=== PATIENT | male | born 1975 | race Caucasian/White ===

== ENCOUNTER 2018-08-18 09:07 | Day surgery (SDC) | payer OTHER ==
--- NOTE | 2018-08-17 15:22 | P.GSHP ---
History of Present Illness H&P Date: 08/18/18 CHIEF COMPLAINT: Change in bowel habits HISTORY OF PRESENT ILLNESS: The patient is a 42-year-old male who presents for change in bowel habits. Lower endoscopy was offered for further evaluation and management. PAST MEDICAL HISTORY: Please see list. PAST SURGICAL HISTORY: Please see list. MEDICATIONS: Please see list. ALLERGIES: Please see list. SOCIAL HISTORY: No illicit drug use FAMILY HISTORY: No reports of Crohn disease or ulcerative colitis. REVIEW OF ORGAN SYSTEMS: CONSTITUTIONAL: No reports of fevers or chills. PHYSICAL EXAM: VITAL SIGNS: Stable GENERAL: Well-developed pleasant in no acute distress. HEENT: No scleral icterus. Extraocular movements grossly intact. Moist buccal mucosa. NECK: Supple without lymphadenopathy. CHEST: Unlabored respirations. Equal bilateral excursions. CARDIOVASCULAR: Regular rate and rhythm. Distal 2+ pulses. ABDOMEN: Soft, nontender, nondistended. MUSCULOSKELETAL: No clubbing, cyanosis, or edema. ASSESSMENT: 1. Change in bowel habits PLAN: 1. Recommend proceeding with a lower endoscopy Medications and Allergies Home Medications Medication Instructions Recorded Confirmed Type Bisoprolol-Hctz 5-6.25 mg [Ziac 1 each PO DAILY 08/15/18 08/15/18 History 5-6.25] Budesonide/Formoterol Fumarate 2 puff INHALATION BID 08/15/18 08/15/18 History [Symbicort 80-4.5 Mcg Inhaler] Allergies Allergy/AdvReac Type Severity Reaction Status Date / Time Penicillins Allergy Unknown Unknown Verified 08/15/18 15:55
[~2018-08-18 09:07] MED LIST: LACTATED RINGERS 1,000 ML IV SCH
[2018-08-18 10:12] VITALS: TEMP 97.8
[2018-08-18] MEDS ORDERED: LACTATED RINGERS 1,000 ML IV ONE (10:12)
[2018-08-18] MEDS ORDERED: LIDOCAINE 1% 20 ML VIAL (10MG/ML) FOR IV START INTRADERMA ONE (10:12)
[2018-08-18] MEDS ORDERED: PROPOFOL 10 MG/ML 20 ML VIAL IV ONE (11:01)
--- NOTE | 2018-08-18 11:22 | P.PCN ---
Date of Procedure: 08/18/18 Description of Procedure: PREOPERATIVE DIAGNOSIS: History of gastrointestinal hemorrhage. History of rectal bleed. POSTOPERATIVE DIAGNOSIS: History of gastrointestinal hemorrhage. History of rectal bleed. Internal hemorrhoids. External hemorrhoids. OPERATION: Colonoscopy to the ileocecal valve and appendiceal orifice SURGEON: Taylor Atkinson MD. ANESTHESIA: MAC. INDICATIONS: The patient is a 42-year-old male who presents for history of rectal bleeding. Benefits and risks were described and informed consent was obtained. DESCRIPTION OF PROCEDURE: The patient had undergone Gatorade, MiraLAX and Dulcolax prep. He had been brought into the operating room and laid in the left lateral decubitus position. After adequate intravenous sedation, the rectum was examined with 2% lidocaine jelly. External hemorrhoids without active inflammation were encountered. The rectal tone was within normal limits. No lesions were palpated in the rectal vault. An Olympus colonoscope was advanced until the ileocecal valve and appendiceal orifice were clearly viewed. No colitis was found. No arteriovenous malformation was encountered. No polyps were encountered. Retroflexion of the scope demonstrated grade 2 internal hemorrhoids without active bleeding. The colon was desufflated. The patient had tolerated the procedure well. FINDINGS: Internal hemorrhoids, grade 2, likely cause of rectal bleed with mild inflammation Mild external prolapsed hemorrhoids. No diverticulosis. No focal colitis. No colon polyps No arteriovenous malformation. RECOMMENDATIONS: Recommend upper endoscopy for any further bleeds. If both scopes are unremarkable may also need a capsule endoscopy in the future. Recommend fiber intake over 25 g daily Plan - Discharge Summary New Discharge Prescriptions: No Action Bisoprolol-Hctz 5-6.25 mg [Ziac 5-6.25] 1 each PO DAILY Budesonide/Formoterol Fumarate [Symbicort 80-4.5 Mcg Inhaler] 2 puff INHALATION BID Discharge Medication List Bisoprolol-Hctz 5-6.25 mg [Ziac 5-6.25] 1 each PO DAILY 08/15/18 [History] Budesonide/Formoterol Fumarate [Symbicort 80-4.5 Mcg Inhaler] 2 puff INHALATION BID 08/15/18 [History]
[2018-08-18 11:46] VITALS: BP 120/78; PULSE 65; RESP 20
== END 2018-08-18 12:07 | disposition home or self-care (01) ==
LOC: ORWHC2ENDO 09:07
PROVIDERS: ATTEND Surgery Plastic and Reconstructive Surgery
DX: K64.1 Second degree hemorrhoids (principal); K64.8 Other hemorrhoids; J44.9 Chronic obstructive pulmonary disease, unspecified; Z79.51 Long term (current) use of inhaled steroids; Z79.899 Other long term (current) drug therapy; Z88.0 Allergy status to penicillin
CPT/HCPCS: 45378; J2704

== ENCOUNTER → 2018-12-12 | Outpatient (CLI) | payer OTHER ==
--- NOTE | 2018-12-14 19:47 | XR ---
EXAMINATION TYPE: XR chest 2V DATE OF EXAM: 12/12/2018 COMPARISON: None HISTORY: 43-year-old male productive cough TECHNIQUE: Frontal and lateral views FINDINGS: The cardiomediastinal silhouette, aorta, and pulmonary vasculature are within normal limits. Mild hyp erinflation may relate to depth of inspiration. Lungs and pleural spaces are clear. IMPRESSION: Mild hyperinflation may relate to depth of inspiration or underlying emphysema. Otherwise, no acute c ardiopulmonary process.
== END ==
LOC: RADXRMAIN 16:47
PROVIDERS: ATTEND Physician Assistant
DX: R91.8 Other nonspecific abnormal finding of lung field (principal)
CPT/HCPCS: 71046

== ENCOUNTER → 2019-01-23 | Outpatient (CLI) | payer OTHER ==
--- NOTE | 2019-01-24 11:37 | XR ---
EXAMINATION TYPE: XR knee complete RT DATE OF EXAM: 01/23/2019 CLINICAL HISTORY: pain TECHNIQUE: Three views of the right knee are obtained. COMPARISON: None. FINDINGS: There is no acute fracture/dislocation. The tri-compartment joint spaces appear within no rmal limits. Superior patellar spurring noted. The overlying soft tissue appears unremarkable. IMPRESSION: There is no acute fracture or dislocation.ICD 10 NO FRACTURE, INITIAL EVALUATION
== END | disposition home or self-care (01) ==
LOC: RADXRMAIN 16:47
PROVIDERS: ATTEND Family Medicine
DX: M25.561 Pain in right knee (principal)

== ENCOUNTER 2019-12-13 23:19 | Emergency (ER) | payer OTHER ==
[2019-12-13 23:29] VITALS: TEMP 97.7
[2019-12-13] MEDS ORDERED: SODIUM CHLORIDE 0.9% 500 ML 500 ML IV STA (23:46)
[2019-12-13] MEDS ORDERED: cloNIDine HCL 0.2 MG TAB PO STA (23:50)
--- NOTE | 2019-12-13 23:50 | ED ---
Arrhythmia/Palpitations HPI - General Chief Complaint: Arrhythmia/Palpitations Stated Complaint: Heart palpatations Time Seen by Provider: 12/13/19 23:32 Source: patient Mode of arrival: ambulatory Limitations: no limitations - History of Present Illness Initial Comments: This patient is 44-year-old man who presents with complaints of feeling irregular heartbeats, chest tightness, and anxiety going on over the past 3 days. The patient states that he has been having some anxiety since he stopped smoking marijuana concentrate. he states that he has been using edible's but not at the same level and he has been feeling anxiety related to that. He also has been having a sensation like his chest feels tight and occasionally like his heart is pounding. MD Complaint: palpitations Onset/Timin -: days(s) Context: occurred during rest Associated Symptoms: denies other symptoms - Related Data Home Medications Medication Instructions Recorded Confirmed Bisoprolol-Hctz 5-6.25 mg [Ziac 1 each PO DAILY 08/15/18 08/15/18 5-6.25] Budesonide/Formoterol Fumarate 2 puff INHALATION BID 08/15/18 08/15/18 [Symbicort 80-4.5 Mcg Inhaler] Allergies Allergy/AdvReac Type Severity Reaction Status Date / Time Penicillins Allergy Unknown Unknown Verified 12/13/19 23:29 Review of Systems ROS Statement: Those systems with pertinent positive or pertinent negative responses have been documented in the HPI. ROS Other: All systems not noted in ROS Statement are negative. Constitutional: Denies: fever, chills Respiratory: Denies: cough, dyspnea, wheezes, hemoptysis Cardiovascular: Reports: chest pain, palpitations. Denies: dyspnea on exertion, orthopnea, edema, syncope Gastrointestinal: Denies: abdominal pain, nausea, vomiting Genitourinary: Denies: dysuria, hematuria Musculoskeletal: Denies: back pain Skin: Denies: rash Neurological: Denies: headache, weakness, numbness Psychiatric: Reports: anxiety Past Medical History Past Medical History: Asthma, COPD, Hypertension History of Any Multi-Drug Resistant Organisms: None Reported Past Surgical History: No Surgical Hx Reported Past Psychological History: No Psychological Hx Reported Smoking Status: Former smoker Past Alcohol Use History: None Reported Past Drug Use History: None Reported General Exam Limitations: no limitations General appearance: alert, in no apparent distress, anxious Head exam: Present: atraumatic, normocephalic Eye exam: Present: normal appearance. Absent: scleral icterus, conjunctival injection ENT exam: Present: normal oropharynx Neck exam: Present: normal inspection Respiratory exam: Present: normal lung sounds bilaterally. Absent: respiratory distress, wheezes, rales, rhonchi, stridor Cardiovascular Exam: Present: regular rate, normal rhythm, normal heart sounds. Absent: systolic murmur, diastolic murmur, rubs, gallop GI/Abdominal exam: Present: soft. Absent: distended, tenderness, guarding, rebound, rigid, mass Extremities exam: Present: normal inspection, normal capillary refill. Absent: pedal edema, calf tenderness Back exam: Present: normal inspection. Absent: CVA tenderness (R), CVA tenderness (L) Neurological exam: Present: alert Skin exam: Present: warm, dry, intact, normal color. Absent: rash Course Vital Signs 12/13/19 12/13/19 12/14/19 23:23 23:40 00:00 Temperature 97.7 F Pulse Rate 79 68 Respiratory 20 20 18 Rate Blood Pressure 156/101 140/98 O2 Sat by Pulse 97 97 Oximetry 12/14/19 12/14/19 12/14/19 00:14 00:30 01:00 Temperature Pulse Rate 69 69 Respiratory 16 Rate Blood Pressure 134/93 134/93 132/89 O2 Sat by Pulse 94 L 96 Oximetry EKG Findings - EKG Results: EKG: interpreted by ISMAEL PHILIPL, sinus rhythm (Rate 69 bpm), normal axis, normal QRS, normal ST/T - SD, Pacemaker, Normal: Normal tracing: normal tracing Medical Decision Making - Lab Data Result diagrams: 12/13/19 23:50 12/13/19 23:50 Lab Results 12/13/19 12/13/19 12/13/19 Range/Units 23:50 23:50 23:50 WBC 13.5 H (3.8-10.6) k/uL RBC 5.08 (4.30-5.90) m/uL Hgb 16.4 (13.0-17.5) gm/dL Hct 47.8 (39.0-53.0) % MCV 94.1 (80.0-100.0) fL MCH 32.2 (25.0-35.0) pg MCHC 34.2 (31.0-37.0) g/dL RDW 12.1 (11.5-15.5) % Plt Count 353 (150-450) k/uL Neutrophils % 78 % Lymphocytes % 14 % Monocytes % 5 % Eosinophils % 3 % Basophils % 0 % Neutrophils # 10.5 H (1.3-7.7) k/uL Lymphocytes # 1.9 (1.0-4.8) k/uL Monocytes # 0.6 (0-1.0) k/uL Eosinophils # 0.4 (0-0.7) k/uL Basophils # 0.0 (0-0.2) k/uL PT 10.5 (9.0-12.0) sec INR 1.0 (<1.2) APTT 27.1 (22.0-30.0) sec Sodium 136 L (137-145) mmol/L Potassium 3.9 (3.5-5.1) mmol/L Chloride 101 (98-107) mmol/L Carbon Dioxide 25 (22-30) mmol/L Anion Gap 10 mmol/L BUN 15 (9-20) mg/dL Creatinine 0.89 (0.66-1.25) mg/dL Est GFR (CKD-EPI)AfAm >90 (>60 ml/min/1.73 sqM) Est GFR (CKD-EPI)NonAf >90 (>60 ml/min/1.73 sqM) Glucose 176 H (74-99) mg/dL Calcium 9.8 (8.4-10.2) mg/dL Magnesium 2.0 (1.6-2.3) mg/dL Total Bilirubin 1.5 H (0.2-1.3) mg/dL AST 25 (17-59) U/L ALT 20 (4-49) U/L Alkaline Phosphatase 74 (38-126) U/L Troponin I (0.000-0.034) ng/mL Total Protein 7.5 (6.3-8.2) g/dL Albumin 4.5 (3.5-5.0) g/dL TSH 1.940 (0.465-4.680) mIU/L Urine Opiates Screen (NotDetected) Ur Oxycodone Screen (NotDetected) Urine Methadone Screen (NotDetected) Ur Propoxyphene Screen (NotDetected) Ur Barbiturates Screen (NotDetected) U Tricyclic Antidepress (NotDetected) Ur Phencyclidine Scrn (NotDetected) Ur Amphetamines Screen (NotDetected) U Methamphetamines Scrn (NotDetected) U Benzodiazepines Scrn (NotDetected) Urine Cocaine Screen (NotDetected) U Marijuana (THC) Screen (NotDetected) 12/13/19 12/13/19 Range/Units 23:50 23:56 WBC (3.8-10.6) k/uL RBC (4.30-5.90) m/uL Hgb (13.0-17.5) gm/dL Hct (39.0-53.0) % MCV (80.0-100.0) fL MCH (25.0-35.0) pg MCHC (31.0-37.0) g/dL RDW (11.5-15.5) % Plt Count (150-450) k/uL Neutrophils % % Lymphocytes % % Monocytes % % Eosinophils % % Basophils % % Neutrophils # (1.3-7.7) k/uL Lymphocytes # (1.0-4.8) k/uL Monocytes # (0-1.0) k/uL Eosinophils # (0-0.7) k/uL Basophils # (0-0.2) k/uL PT (9.0-12.0) sec INR (<1.2) APTT (22.0-30.0) sec Sodium (137-145) mmol/L Potassium (3.5-5.1) mmol/L Chloride (98-107) mmol/L Carbon Dioxide (22-30) mmol/L Anion Gap mmol/L BUN (9-20) mg/dL Creatinine (0.66-1.25) mg/dL Est GFR (CKD-EPI)AfAm (>60 ml/min/1.73 sqM) Est GFR (CKD-EPI)NonAf (>60 ml/min/1.73 sqM) Glucose (74-99) mg/dL Calcium (8.4-10.2) mg/dL Magnesium (1.6-2.3) mg/dL Total Bilirubin (0.2-1.3) mg/dL AST (17-59) U/L ALT (4-49) U/L Alkaline Phosphatase (38-126) U/L Troponin I <0.012 (0.000-0.034) ng/mL Total Protein (6.3-8.2) g/dL Albumin (3.5-5.0) g/dL TSH (0.465-4.680) mIU/L Urine Opiates Screen Not Detected (NotDetected) Ur Oxycodone Screen Not Detected (NotDetected) Urine Methadone Screen Not Detected (NotDetected) Ur Propoxyphene Screen Not Detected (NotDetected) Ur Barbiturates Screen Not Detected (NotDetected) U Tricyclic Antidepress Not Detected (NotDetected) Ur Phencyclidine Scrn Not Detected (NotDetected) Ur Amphetamines Screen Not Detected (NotDetected) U Methamphetamines Scrn Not Detected (NotDetected) U Benzodiazepines Scrn Not Detected (NotDetected) Urine Cocaine Screen Not Detected (NotDetected) U Marijuana (THC) Screen Detected H (NotDetected) Disposition Clinical Impression: Palpitations Disposition: HOME SELF-CARE Condition: Good Instructions (If sedation given, give patient instructions): Heart Palpitations (ED) Is patient prescribed a controlled substance at d/c from ED?: No Referrals: Jeffrey Bryant DO [Primary Care Provider] - 1-2 days
[2019-12-13 23:59] LABS: Basophils % (A) 0 %; Eosinophils # (A) 0.4 k/uL (0-0.7); Eosinophils % (A) 3 %; HCT 47.8 % (39.0-53.0); HGB 16.4 gm/dL (13.0-17.5); Lymphocytes # (A) 1.9 k/uL (1.0-4.8); Lymphocytes % (A) 14 %; MCH 32.2 pg (25.0-35.0); MCHC 34.2 g/dL (31.0-37.0); MCV 94.1 fL (80.0-100.0); Monocytes # (A) 0.6 k/uL (0-1.0); Monocytes % (A) 5 %; Neutrophils # (A) 10.5 k/uL (1.3-7.7); Neutrophils % (A) 78 %; Platelet Count 353 k/uL (150-450); RBC 5.08 m/uL (4.30-5.90); RDW 12.1 % (11.5-15.5); WBC 13.5 k/uL (3.8-10.6)
[2019-12-14 00:08] LABS: ALT 20 U/L (4-49); AST 25 U/L (17-59); African American GFR (CKD) >90 (>60 ml/min/1.73 sqM); Albumin 4.5 g/dL (3.5-5.0); Alkaline Phosphatase 74 U/L (38-126); Anion Gap 10 mmol/L; Blood Urea Nitrogen 15 mg/dL (9-20); Calcium 9.8 mg/dL (8.4-10.2); Carbon Dioxide 25 mmol/L (22-30); Chloride 101 mmol/L (98-107); Glucose 176 mg/dL (74-99); Non-African American GFR(CKD) >90 (>60 ml/min/1.73 sqM); Partial Thromboplastin Time 27.1 sec (22.0-30.0); Potassium 3.9 mmol/L (3.5-5.1); Prothrombin Time 10.5 sec (9.0-12.0); Sodium 136 mmol/L (137-145); Total Bilirubin 1.5 mg/dL (0.2-1.3); Total Protein 7.5 g/dL (6.3-8.2)
[2019-12-14 00:26] LABS: Amphetamine Screen,Urine Not Detected (NotDetected); Barbiturate Screen,Urine Not Detected (NotDetected); Benzodiazepines Screen,Urine Not Detected (NotDetected); Cocaine Screen,Urine Not Detected (NotDetected); Methadone Screen, Urine Not Detected (NotDetected); Opiate Screen,Urine Not Detected (NotDetected); Oxycodone Screen, Urine Not Detected (NotDetected); Phencyclidine Screen,Urine Not Detected (NotDetected); Tricyclic Antidepressant,Urine Not Detected (NotDetected); Urn Cannabinoid Scrn Detected (NotDetected)
--- NOTE | 2019-12-14 00:36 | XR ---
EXAMINATION TYPE: XR chest 2V DATE OF EXAM: 12/14/2019 COMPARISON: 12/12/2018 HISTORY: Cough. Dysrhythmia. TECHNIQUE: 2 views FINDINGS: Heart and mediastinum are normal. Lungs are clear. Diaphragm is normal. Bony thorax appears normal. Pulmonary vascularity is normal. There are chest leads. IMPRESSION: Normal chest. No change.
[2019-12-14 01:43] VITALS: BP 132/87; PULSE 67; RESP 15
== END 2019-12-14 01:44 | disposition home or self-care (01) ==
LOC: EC 23:19
DX: R00.2 Palpitations (principal); J44.9 Chronic obstructive pulmonary disease, unspecified; I10 Essential (primary) hypertension; F12.980 Cannabis use, unspecified with anxiety disorder; Z79.51 Long term (current) use of inhaled steroids; Z79.899 Other long term (current) drug therapy; Z87.891 Personal history of nicotine dependence; Z88.0 Allergy status to penicillin
CPT/HCPCS: 36415; 71046; 80053; 80306; 83735; 84443; 84484; 85025; 85610; 85730; 93005; 99285

== ENCOUNTER 2019-12-22 20:18 | Observation (INO) | payer OTHER ==
--- NOTE | 2019-12-22 21:36 | XR ---
EXAMINATION TYPE: XR chest 2V DATE OF EXAM: 12/22/2019 COMPARISON: Chest x-ray December 14, 2019 HISTORY: Chest pain and syncope. TECHNIQUE: Frontal and lateral views of the chest are obtained. FINDINGS: There is mild chronic chronic parenchymal change without suspicious focal air space opacit y, pleural effusion, or pneumothorax seen. The cardiac silhouette size remains within normal limits. The osseous structures are intact. Overlying EKG leads redemonstrated. IMPRESSION: No acute cardiopulmonary process. No significant change from prior.
[2019-12-22 21:38] LABS: Basophils # (A) 0.1 k/uL (0-0.2); Basophils % (A) 0 %; Eosinophils # (A) 0.3 k/uL (0-0.7); Eosinophils % (A) 3 %; HCT 47.6 % (39.0-53.0); HGB 15.5 gm/dL (13.0-17.5); Lymphocytes # (A) 2.3 k/uL (1.0-4.8); Lymphocytes % (A) 20 %; MCH 30.5 pg (25.0-35.0); MCHC 32.7 g/dL (31.0-37.0); MCV 93.4 fL (80.0-100.0); Mean Platelet Volume 8.5; Monocytes # (A) 0.7 k/uL (0-1.0); Monocytes % (A) 6 %; Neutrophils % (A) 69 %; Platelet Count 371 k/uL (150-450); RBC 5.09 m/uL (4.30-5.90); RDW 11.9 % (11.5-15.5); WBC 11.5 k/uL (3.8-10.6)
[2019-12-22 21:43] LABS: Partial Thromboplastin Time 26.2 sec (22.0-30.0); Prothrombin Time 10.1 sec (9.0-12.0)
[2019-12-22 21:44] LABS: ALT 21 U/L (4-49); AST 30 U/L (17-59); African American GFR (CKD) >90 (>60 ml/min/1.73 sqM); Albumin 4.5 g/dL (3.5-5.0); Alkaline Phosphatase 77 U/L (38-126); Anion Gap 13 mmol/L; Blood Urea Nitrogen 13 mg/dL (9-20); Calcium 9.7 mg/dL (8.4-10.2); Carbon Dioxide 21 mmol/L (22-30); Chloride 103 mmol/L (98-107); Glucose 105 mg/dL (74-99); Magnesium 2.1 mg/dL (1.6-2.3); Non-African American GFR(CKD) 89 (>60 ml/min/1.73 sqM); Sodium 137 mmol/L (137-145); Total Bilirubin 1.4 mg/dL (0.2-1.3); Total Protein 7.7 g/dL (6.3-8.2)
[2019-12-22] MEDS ORDERED: NALOXONE 0.4 MG/ML 1 ML VIAL IV PRN (22:48)
--- NOTE | 2019-12-22 22:48 | ED ---
Chest Pain HPI - General Chief Complaint: Chest Pain Stated Complaint: Chest Pressure Time Seen by Provider: 12/22/19 20:30 Source: patient Mode of arrival: ambulatory Limitations: no limitations - History of Present Illness Initial Comments: The patient is a 44-year-old male with past medical history of hypertension and hyperlipidemia who presents to the emergency department with reported chest pain. Patient states this pain started 2-1/2 hours prior to arrival. Describes it as a pressure on his chest. Also reports the palpitations and the feeling that he is going to pass out. Patient denies a history of coronary disease. Has never had a stress test or echo before. Patient admitted to associated diaphoresis. Denies cough or hemoptysis. No lower extremity edema. Pain improved at this time. Patient for T-wave seen in the emergency department one week ago for similar complaints. He followed up with his primary care physician office to changed his blood pressure medications however did not add any other medications. She was scheduling him for a stress test however he has yet to receive a call in regards to this. There are no alleviating, precipitating or modifying factors - Related Data Home Medications Medication Instructions Recorded Confirmed Albuterol Inhaler [Ventolin Hfa 2 puff INHALATION RT-Q6H PRN 12/22/19 12/22/19 Inhaler] Atorvastatin [Lipitor] 20 mg PO DAILY@0700 12/22/19 12/22/19 Budesonide/Formoterol Fumarate 1 puff INHALATION RT-BID 12/22/19 12/22/19 [Symbicort 160-4.5 Mcg Inhaler] Carvedilol [Coreg] 6.25 mg PO BID@0700,1800 12/22/19 12/22/19 Omeprazole 20 mg PO DAILY@0700 12/22/19 12/22/19 amLODIPine [Norvasc] 5 mg PO DAILY@0700 12/22/19 12/22/19 busPIRone HCL [Buspar] 7.5 mg PO DAILY@0700 12/22/19 12/22/19 busPIRone HCL [Buspar] 7.5 mg PO HS PRN 12/22/19 12/22/19 Previous Rx's Medication Instructions Recorded Melatonin 3 mg PO HS #30 tablet 12/23/19 Allergies Allergy/AdvReac Type Severity Reaction Status Date / Time Penicillins AdvReac Unknown WEAKNESS Verified 05/19/20 21:41 Review of Systems ROS Statement: Those systems with pertinent positive or pertinent negative responses have been documented in the HPI. ROS Other: All systems not noted in ROS Statement are negative. EKG Findings - EKG Comments: EKG Findings:: EKG demonstrates normal sinus rhythm with a ventricular rate of 77. VA interval 178. QRS 80. QTC of 407. No acute ST segment elevations or depressions concerning for ischemic changes Past Medical History Past Medical History: Asthma, COPD, Hypertension History of Any Multi-Drug Resistant Organisms: None Reported Past Surgical History: No Surgical Hx Reported Past Psychological History: No Psychological Hx Reported Smoking Status: Former smoker Past Alcohol Use History: None Reported Past Drug Use History: None Reported General Exam Limitations: no limitations General appearance: alert, in no apparent distress Head exam: Present: atraumatic, normocephalic, normal inspection Eye exam: Present: normal appearance, PERRL, EOMI. Absent: scleral icterus, conjunctival injection, periorbital swelling ENT exam: Present: normal exam, mucous membranes moist Neck exam: Present: normal inspection. Absent: tenderness, meningismus, lymphadenopathy Respiratory exam: Present: normal lung sounds bilaterally. Absent: respiratory distress, wheezes, rales, rhonchi, stridor Cardiovascular Exam: Present: regular rate, normal rhythm, normal heart sounds. Absent: systolic murmur, diastolic murmur, rubs, gallop, clicks GI/Abdominal exam: Present: soft, normal bowel sounds. Absent: distended, tenderness, guarding, rebound, rigid Extremities exam: Present: normal inspection, full ROM, normal capillary refill. Absent: tenderness, pedal edema, joint swelling, calf tenderness Back exam: Present: normal inspection Neurological exam: Present: alert, oriented X3, CN II-XII intact Psychiatric exam: Present: normal affect, normal mood Skin exam: Present: warm, dry, intact, normal color. Absent: rash Course Vital Signs 12/22/19 12/22/19 12/22/19 20:28 20:30 22:30 Temperature 98.9 F Pulse Rate 82 70 69 Pulse Rate [ Left Supine] Pulse Rate [ Right] Respiratory 18 17 19 Rate Blood Pressure 150/91 150/91 119/72 Blood Pressure [Right Arm Supine] O2 Sat by Pulse 97 98 Oximetry 12/23/19 12/23/19 12/23/19 02:30 06:30 08:00 Temperature 97.8 F Pulse Rate 67 61 Pulse Rate [ 78 Left Supine] Pulse Rate [ Right] Respiratory 16 16 16 Rate Blood Pressure 126/79 123/77 Blood Pressure 113/77 [Right Arm Supine] O2 Sat by Pulse 98 96 98 Oximetry 12/23/19 12/23/19 12:00 12:50 Temperature 98.6 F Pulse Rate Pulse Rate [ 78 Left Supine] Pulse Rate [ 83 83 Right] Respiratory 16 16 Rate Blood Pressure Blood Pressure 140/95 [Right Arm Supine] O2 Sat by Pulse 96 Oximetry Chest Pain MDM - MDM Upon arrival the patient is placed into room 10. A thorough history and physical exam was performed. Laboratory studies were conducted. I did review the patient's record. Laboratory studies are unremarkable. First troponin is negative. Chest x-ray demonstrates no acute intrathoracic process. I did recommend hospital admission as this is the patient's second time to the emergency room with similar complaints. Patient did agree to this. I spoke with Dr. Monet who accepted admission. The patient is awaiting a bed on the floor Disposition Clinical Impression: Chest pain Disposition: ADMITTED IP TO THIS HOSP Condition: Stable Is patient prescribed a controlled substance at d/c from ED?: No Decision to Admit Reason: Admit from EC Decision Date: 12/22/19 Decision Time: 22:47
[2019-12-22] MEDS ORDERED: busPIRone HCl 5 MG TAB PO PRN (22:49)
[2019-12-22] MEDS ORDERED: ALBUTEROL NEBULIZED 2.5 MG/3 ML INHALATION PRN (22:49)
[2019-12-22] MEDS ORDERED: ASPIRIN 325 MG TAB PO STA (22:56)
[2019-12-23 03:12] VITALS: RESP 16
[2019-12-23] MEDS ORDERED: amLODIPine 5 MG TAB PO SCH (07:00)
[2019-12-23] MEDS ORDERED: ATORVASTATIN 20 MG TAB PO SCH ×2 (07:00→21:00)
[2019-12-23] MEDS ORDERED: PANTOPRAZOLE 40 MG TABLET PO SCH (07:00)
[2019-12-23] MEDS ORDERED: CARVEDILOL 6.25 MG TAB PO SCH (07:00)
[2019-12-23] MEDS ORDERED: busPIRone HCl 5 MG TAB PO SCH (07:00)
[2019-12-23] MEDS ORDERED: SYMBICORT 160-4.5 MCG INHALER INHALATION SCH (08:00)
[2019-12-23] MEDS ORDERED: NITROGLYCERIN SL TABS 0.4 MG TAB SUBLINGUAL PRN (08:47)
[2019-12-23 09:28] LABS: Basophils % (A) 0 %; Eosinophils # (A) 0.3 k/uL (0-0.7); Eosinophils % (A) 3 %; HCT 48.2 % (39.0-53.0); HGB 15.8 gm/dL (13.0-17.5); Lymphocytes # (A) 1.9 k/uL (1.0-4.8); Lymphocytes % (A) 18 %; MCH 31.1 pg (25.0-35.0); MCHC 32.9 g/dL (31.0-37.0); MCV 94.5 fL (80.0-100.0); Mean Platelet Volume 8.4; Monocytes # (A) 0.6 k/uL (0-1.0); Monocytes % (A) 6 %; Neutrophils # (A) 7.6 k/uL (1.3-7.7); Neutrophils % (A) 72 %; Platelet Count 329 k/uL (150-450); RBC 5.09 m/uL (4.30-5.90); RDW 11.9 % (11.5-15.5); WBC 10.6 k/uL (3.8-10.6)
[2019-12-23 09:45] LABS: African American GFR (CKD) >90 (>60 ml/min/1.73 sqM); Anion Gap 11 mmol/L; Blood Urea Nitrogen 12 mg/dL (9-20); Calcium 9.5 mg/dL (8.4-10.2); Carbon Dioxide 22 mmol/L (22-30); Chloride 107 mmol/L (98-107); Glucose 90 mg/dL (74-99); Non-African American GFR(CKD) >90 (>60 ml/min/1.73 sqM); Potassium 3.8 mmol/L (3.5-5.1); Sodium 140 mmol/L (137-145)
--- NOTE | 2019-12-23 11:31 | CONS ---
JAYLON Haji is a 44-year-old gentleman with history of hypertension, dyslipidemia, COPD, who presented to hospital complaining of chest pain. For the last few days, he states he is having intermittent episodes of chest pain and mild palpitations. At the time of my evaluation, he is pain free and hemodynamically stable. EKG does not reveal ischemic changes. Cardiac enzymes have been negative. I advised the patient to undergo a stress test today. If the stress test is abnormal, he will undergo cardiac catheterization. If not, he will be treated with medical therapy. PAST MEDICAL HISTORY: Significant for hypertension, dyslipidemia. CURRENT MEDICATIONS: Include BuSpar, Norvasc 5 daily, omeprazole, Coreg 6.25 b.i.d., Symbicort, Lipitor, and Ventolin. ALLERGIES: The patient is allergic to PENICILLIN. FAMILY HISTORY: Negative for premature coronary artery disease. SOCIAL HISTORY: Negative for current smoking, EtOH abuse, or drug abuse. REVIEW OF SYSTEMS: HEENT: Unremarkable. CARDIAC: As described above. RESPIRATORY: As described above. GI: Negative. GENITOURINARY: Negative. ALLERGY/IMMUNOLOGY: Negative. SKIN: Negative. MUSCULOSKELETAL: Negative. ENDOCRINE: Negative. DERM: Negative. CONSTITUTIONAL: Negative. ONCOLOGICAL: Negative. Rest of the system review is not relevant. PHYSICAL EXAM: Comfortable at rest. Vital signs are stable. There is no jugular venous distention. Carotid upstroke is normal. There is no bruit. Chest exam reveals good air entry bilaterally. Heart exam reveals first and second heart sounds. No gallop. No murmur. Abdomen is soft, nontender. Exam of extremities did not reveal any edema. Peripheral pulses are felt. LABS: Show a hemoglobin of 15.8, platelet count is 329, potassium is 3.8 creatinine is 0.85. Troponins are negative. ASSESSMENT: 1. Precordial chest pain. 2. Hypertension. 3. Dyslipidemia. PLAN: The patient will undergo a stress echo today. If this is negative, he will be discharged home. If this is abnormal, I will perform cardiac catheterization. MMODL / IJN: [id number] /
--- NOTE | 2019-12-23 12:00 | ECHOF ---
Referral Reason: MEASUREMENTS -------- HEIGHT: 180.3 cm WEIGHT: 90.7 kg BP: RVIDd: 2.6 cm (< 3.3) IVSd: 1.2 cm (0.6 - 1.1) LVIDd: 3.4 cm (3.9 - 5.3) LVPWd: 1.5 cm (0.6 - 1.1) IVSs: 1.6 cm LVIDs: 2.5 cm LVPWs: 2.0 cm Ao Diam: 3.0 cm (2.0 - 3.7) AV Cusp: 1.8 cm (1.5 - 2.6) LA Diam: 3.1 cm (2.7 - 3.8) MV EXCURSION: 18.048 mm (> 18.000) MV EF SLOPE: 118 mm/s (70 - 150) EPSS: 0.4 cm MV E Brad: 0.79 m/s MV DecT: 209 ms MV A Brad: 0.55 m/s MV E/A Ratio: 1.44 RAP: 5.00 mmHg RVSP: 15.73 mmHg FINDINGS -------- Sinus rhythm. This was a technically good study. The left ventricular size is normal. There is mild concentric left ventricular hypertrophy. Overa ll left ventricular systolic function is normal with, an EF between 55 - 60 %. The right ventricle is normal in size. The left atrial size is normal. The right atrial size is normal. Interatrial and interventricular septum intact. The aortic valve is trileaflet and appears structurally normal. The mitral valve is normal. There is trace mitral regurgitation. The tricuspid valve appears structurally normal. Trace tricuspid regurgitation present. Right humaira tricular systolic pressure is normal at < 35 mmHg. There is no pulmonic regurgitation present. The aortic root size is normal. Normal inferior vena cava with normal inspiratory collapse consistent with estimated right atrial pre ssure of 5 mmHg. There is no pericardial effusion. CONCLUSIONS -------- 1. Sinus rhythm. 2. This was a technically good study. 3. The left ventricular size is normal. 4. There is mild concentric left ventricular hypertrophy. 5. Overall left ventricular systolic function is normal with, an EF between 55 - 60 %. 6. The right ventricle is normal in size. 7. The left atrial size is normal. 8. The right atrial size is normal. 9. Interatrial and interventricular septum intact. 10. The aortic valve is trileaflet and appears structurally normal. 11. The mitral valve is normal. 12. There is trace mitral regurgitation. 13. The tricuspid valve appears structurally normal. 14. Trace tricuspid regurgitation present. 15. Right ventricular systolic pressure is normal at < 35 mmHg. 16. There is no pulmonic regurgitation present. 17. The aortic root size is normal. 18. Normal inferior vena cava with normal inspiratory collapse consistent with estimated right atrial pressure of 5 mmHg. 19. There is no pericardial effusion. AIX ADMINISTRATOR: Silvia Martinez RDCS
--- NOTE | 2019-12-23 16:21 | ECHOS ---
STRESS ECHOCARDIOGRAM LUCIAASON: Gaye INDICATIONS: Chest pain. MEDICATIONS: BASELINE HEART RATE: 79 BASELINE BLOOD PRESSURE: 144/101 MAXIMUM HEART RATE: 153 MAXIMUM BLOOD PRESSURE: 160/100 85% MPHR: 150 100% MPHR: 177 METS: 12.1 MAXIMUM STAGE REACHED: 4 TOTAL EXERCISE TIME: 10:30 CLINICAL INFORMATION: DATE OF SERVICE: 12/23/2019 Baseline EKG revealed normal sinus rhythm without significant ST-T changes. Patient walked on standard Natanael protocol for a total duration of 10 minutes 30 seconds, achieved a maximal heart rate of 159 beats per minute which is well above 85% of predicted maximal. He developed fatigue and shortness of breath but did not have any angina or arrhythmia. Resting heart rate was 79 beats per minute. Peak heart rate was 159 beats per minute. Resting blood pressure was 140/100. Peak blood pressure was 178/91. EKG did not reveal any ST-segment changes to indicate ischemia. This is a negative stress test by EKG criteria. Baseline echo images revealed normal wall motion wall thickening of all segments. At peak exercise there was good augmentation of wall motion AND wall thickening of all segments suggesting that there is no evidence of stress-induced ischemia on this study. IMPRESSION: 1. Excellent exercise capacity with a negative stress test by EKG criteria. 2. Normal stress echocardiogram. MMODL / IJN: [id number] /
--- NOTE | 2019-12-23 16:51 | P.HPIM ---
History of Present Illness H&P Date: 12/23/19 Chief Complaint: Chest squeezing History of presenting complaint: This is a pleasant 40. Patient of Dr. Kyung Bryant. Chronic stable medical conditions include asthma, hypertension, hyperlipidemia and anxiety. Patient definitely refractory of anxious disposition and worries about small things. Patient presented multitudinous symptoms. He was sitting down and surgery for his heart racing. Became anxious. Also felt his lower sternal area squeezing. He said having pains appearance and needles in different parts of the chest. No radiation. He felt dizzy perspiration very anxious. Patient often as not able to sleep. Has a decreased appetite. During the conversation appears rather anxious. Otherwise rather active. Patient did quit chewing marijuana to 3 weeks ago. Lives by himself. Denies use of a other recreational drugs. On any energy supplements. Patient also erratic about his meals and duration he goes without them. Patient is quite concerned about the cold and 19. And other things to. He also has a pet animal (he finds quite a bit of this responsibility with. He is trying to sell the same.. Review of systems: GEN.: Decreased appetite EYES: None HEENT: None NECK: None RESPIRATORY: None CARDIOVASCULAR: As above] GASTROINTESTINAL: None GENITOURINARY: None MUSCULOSKELETAL: None LYMPHATICS: None HEMATOLOGICAL: None PSYCHIATRY: Anxious NEUROLOGICAL: Decreased sleeping Past medical history to include: Asthma, hypertension, anxiety, GERD Social history: Lives alone. Works in a foundry. Smoked for about 10 years stopped about 20 years ago. Denies intake of alcohol. Was doing marijuana to about 3 weeks ago. Family history: Reviewed, noncontributory to presentation Physical examination: VITAL SIGNS: 98.9, 82, 18, 150/91, 97% room air GENERAL: BMI 27.1, propped up in bed, anxious. EYES: Pupils equal. Conjunctiva joseline, some dark circles under the eyes l. HEENT: External appearance of nose and ears normal, oral cavity grossly normal. NECK: JVD not raised; masses not palpable. HEART: First and second heart sounds are normal; no edema. LUNGS: Respiratory rate normal; clear to auscultation. ABDOMEN: Soft, nontender, liver spleen not palpable, no masses palpable. PSYCH: Alert and oriented x3; mood and affect anxiousl. NEUROLOGICAL: Cranial nerves grossly intact; no facial asymmetry, power and sensation grossly intact. LYMPHATICS: No lymph nodes palpable in the axilla and neck INVESTIGATIONS, reviewed in the clinical context: White count 11.5 hemoglobin 15.5 potassium 4 crit 1.03 and repeat white count 10.6 Troponin I 3 negative COVID-19 PCR at-not detected EKG tracing personally reviewed by me-normal sinus rhythm Chest x-ray film personally reviewed by me-lungs clear Assessment: -Anterior chest wall pain is rather atypical noncardiac associated features. Most likely panic attack. Patient is a very anxious predisposition. Rule out a cardiac cause -COPD in an ex-smoker -Essential hypertension -Anxiety, depression not otherwise specified -Chronic insomnia from medical reasons Plan: Serial cardiac enzymes were negative. Cardiology was consulted. They ordered a stress echocardiogram. Patient was counseled length about lifestyle changes. Including mindfulness. Patient is told to stay with him recreational drugs. We'll add melatonin. At night. Past Medical History Past Medical History: Asthma, COPD, Hypertension History of Any Multi-Drug Resistant Organisms: None Reported Past Surgical History: No Surgical Hx Reported Past Psychological History: No Psychological Hx Reported Smoking Status: Former smoker Past Alcohol Use History: None Reported Past Drug Use History: None Reported Medications and Allergies Home Medications Medication Instructions Recorded Confirmed Type Albuterol Inhaler [Ventolin Hfa 2 puff INHALATION RT-Q6H PRN 12/22/19 12/22/19 History Inhaler] Atorvastatin [Lipitor] 20 mg PO DAILY@0700 12/22/19 12/22/19 History Budesonide/Formoterol Fumarate 1 puff INHALATION RT-BID 12/22/19 12/22/19 Histo ry [Symbicort 160-4.5 Mcg Inhaler] Carvedilol [Coreg] 6.25 mg PO BID@0700,1800 12/22/19 12/22/19 History Omeprazole 20 mg PO DAILY@0700 12/22/19 12/22/19 History amLODIPine [Norvasc] 5 mg PO DAILY@0700 12/22/19 12/22/19 History busPIRone HCL [Buspar] 7.5 mg PO DAILY@0700 12/22/19 12/22/19 History busPIRone HCL [Buspar] 7.5 mg PO HS PRN 12/22/19 12/22/19 History Allergies Allergy/AdvReac Type Severity Reaction Status Date / Time Penicillins AdvReac Unknown WEAKNESS Verified 12/22/19 21:41 Physical Exam Vitals: Vital Signs Temp Pulse Resp BP Pulse Ox 12/23/19 06:30 61 16 123/77 96 12/23/19 02:30 67 16 126/79 98 12/22/19 22:30 69 19 119/72 12/22/19 20:30 70 17 150/91 98 12/22/19 20:28 98.9 F 82 18 150/91 97 Intake and Output 12/22/19 12/23/19 12/23/19 22:59 06:59 14:59 Other: Weight 90.718 kg Results CBC & Chem 7: 12/23/19 08:55 12/23/19 08:55 Labs: Abnormal Lab Results - Last 24 Hours (Table) 12/22/19 12/22/19 Range/Units 20:41 20:41 WBC 11.5 H (3.8-10.6) k/uL Neutrophils # 8.0 H (1.3-7.7) k/uL Carbon Dioxide 21 L (22-30) mmol/L Glucose 105 H (74-99) mg/dL Total Bilirubin 1.4 H (0.2-1.3) mg/dL
[2019-12-23 16:53] VITALS: BP 134/87; TEMP 98.3
[2019-12-23 16:58] VITALS: PULSE 78
--- NOTE | 2019-12-23 22:38 | P.DS ---
Providers Date of admission: 12/22/19 22:48 Expected date of discharge: 12/23/19 Attending physician: Ruben Monet Consults: 12/22/19 22:48 Consult Physician Urgent Consulting Provider: [facility] Consult Reason/Comments: acute chest pain possible acs Do you want consulting provider notified?: Yes Primary care physician: Jeffrey Bryant [facility] Course: Chief Complaint: Chest squeezing History of presenting complaint: This is a pleasant 40. Patient of Dr. Kyung Bryant. Chronic stable medical conditions include asthma, hypertension, hyperlipidemia and anxiety. Patient definitely refractory of anxious disposition and worries about small things. Patient presented multitudinous symptoms. He was sitting down and surgery for h is heart racing. Became anxious. Also felt his lower sternal area squeezing. He said having pains appearance and needles in different parts of the chest. No radiation. He felt dizzy perspiration very anxious. Patient often as not able to sleep. Has a decreased appetite. During the conversation appears rather anxious. Otherwise rather active. Patient did quit chewing marijuana to 3 weeks ago. Lives by himself. Denies use of a other recreational drugs. On any energy supplements. Patient also erratic about his meals and duration he goes without them. Patient is quite concerned about the cold and 19. And other things to. He also has a pet animal (he finds quite a bit of this responsibility with. He is trying to sell the same.. Patient's symptoms were felt to be psychosomatic more of a panic attack. Patient does of anxious disposition. Troponins were negative. 2-D echocardiogram was unremarkable. Stress echocardiogram was negative. Cleared by cardiogenic. Care was discussed at length with the patient. He should follow with a psychologist and a psychiatry as an outpatient. Discussed at length. Mindfulness was also discussed. Consultation: Dr. Octavia Alonso from cardiology Physical examination: VITAL SIGNS: 98.3, 77, 16, 134/87, 97% on room air GENERAL: BMI 27.1, propped up in bed, anxious. EYES: Pupils equal. Conjunctiva joseline, some dark circles under the eyes l. HEENT: External appearance of nose and ears normal, oral cavity grossly normal. NECK: JVD not raised; masses not palpable. HEART: First and second heart sounds are normal; no edema. LUNGS: Respiratory rate normal; clear to auscultation. ABDOMEN: Soft, nontender, liver spleen not palpable, no masses palpable. PSYCH: Alert and oriented x3; mood and affect anxiousl. INVESTIGATIONS, reviewed in the clinical context: White count 11.5 hemoglobin 15.5 potassium 4 crit 1.03 and repeat white count 10.6 Troponin I 3 negative COVID-19 PCR at-not detected EKG tracing personally reviewed by me-normal sinus rhythm Chest x-ray film personally reviewed by me-lungs clear 2-D echocardiogram a 55-60% Stress echocardiogram-negative for ischemia Assessment: -Anterior chest wall pain-psychosomatic, POA -Probable panic attack -COPD in an ex-smoker -Essential hypertension -Anxiety, depression not otherwise specified -Chronic insomnia from medical reasons Disposition: Home Patient Condition at Discharge: Stable Plan - Discharge Summary Discharge Rx Participant: Yes New Discharge Prescriptions: New Melatonin 3 mg PO HS #30 tablet Continue busPIRone HCL [Buspar] 7.5 mg PO DAILY@0700 busPIRone HCL [Buspar] 7.5 mg PO HS PRN PRN Reason: Anxiety amLODIPine [Norvasc] 5 mg PO DAILY@0700 Budesonide/Formoterol Fumarate [Symbicort 160-4.5 Mcg Inhaler] 1 puff INHALATION RT-BID Atorvastatin [Lipitor] 20 mg PO DAILY@0700 Albuterol Inhaler [Ventolin Hfa Inhaler] 2 puff INHALATION RT-Q6H PRN PRN Reason: Shortness Of Breath Omeprazole 20 mg PO DAILY@0700 Carvedilol [Coreg] 6.25 mg PO BID@0700,1800 Discharge Medication List Albuterol Inhaler [Ventolin Hfa Inhaler] 2 puff INHALATION RT-Q6H PRN 12/22/19 [History] Atorvastatin [Lipitor] 20 mg PO DAILY@0700 12/22/19 [History] Budesonide/Formoterol Fumarate [Symbicort 160-4.5 Mcg Inhaler] 1 puff INHALATION RT-BID 12/22/19 [History] Carvedilol [Coreg] 6.25 mg PO BID@0700,1800 12/22/19 [History] Omeprazole 20 mg PO DAILY@0700 12/22/19 [History] amLODIPine [Norvasc] 5 mg PO DAILY@0700 12/22/19 [History] busPIRone HCL [Buspar] 7.5 mg PO DAILY@0700 12/22/19 [History] busPIRone HCL [Buspar] 7.5 mg PO HS PRN 12/22/19 [History] Melatonin 3 mg PO HS #30 tablet 12/23/19 [Rx] Follow up Appointment(s)/Referral(s): Jeffrey Bryant DO [Primary Care Provider] - 1-2 days (Office is currently closed, call tomorrow to schedule follow up appointment.) Abram Alonso MD [STAFF PHYSICIAN] - 6 Weeks (Office is currently closed, call [facility] tomorrow to schedule follow up appointment.) Patient Instructions/Handouts: Chest Pain (GEN), Heart Palpitations (GEN), Generalized Anxiety Disorder (GEN) Discharge Disposition: HOME SELF-CARE
== END 2019-12-23 19:18 | disposition home or self-care (01) ==
LOC: EC 20:18 → 3SCARD 22:48
PROVIDERS: ADMIT Hospitalist; ATTEND Hospitalist
DX: R07.89 Other chest pain (principal); R00.2 Palpitations; R42 Dizziness and giddiness; R61 Generalized hyperhidrosis; F51.04 Psychophysiologic insomnia; F41.9 Anxiety disorder, unspecified; F32.9 Major depressive disorder, single episode, unspecified; I10 Essential (primary) hypertension; E78.5 Hyperlipidemia, unspecified; G47.01 Insomnia due to medical condition; J44.9 Chronic obstructive pulmonary disease, unspecified; Z87.891 Personal history of nicotine dependence; Z11.59 Encounter for screening for other viral diseases; Z79.51 Long term (current) use of inhaled steroids; Z79.899 Other long term (current) drug therapy; Z88.0 Allergy status to penicillin
CPT/HCPCS: 93005 ×2; 99285; 36415; 94640; 93306; 93351; 80053; 80048; 83735; 84484 ×2; 85025 ×2; 85610; 85730; 87635; 71046; G0378 ×2

== ENCOUNTER 2022-12-22 19:41 | Emergency (ER) | payer BC, OTHER ==
[2022-12-22 19:45] VITALS: TEMP 98.1
--- NOTE | 2022-12-22 20:27 | XR ---
EXAMINATION TYPE: XR elbow complete RT DATE OF EXAM: 12/22/2022 8:03 PM INDICATION: Patient age:Male; 47 years old; Reason for study: injury; PHH. COMPARISON: Right forearm radiographs 12/22/2022 TECHNIQUE: The right elbow was examined in AP, lateral, and oblique projections. FINDINGS: No evidence of any acute osseous pathology, joint dislocation, or soft tissue swelling is n oted. No evidence of joint effusion is present. IMPRESSION: No evidence of acute fracture.
--- NOTE | 2022-12-22 20:28 | XR ---
EXAMINATION TYPE: XR forearm RT DATE OF EXAM: 12/22/2022 8:03 PM INDICATION: Patient age:Male; 47 years old; Reason for study: pain upper forearm/inner elbow; PHH. COMPARISON: Right elbow radiographs 12/22/2022 TECHNIQUE: The right forearm was examined in AP and lateral projections. FINDINGS: No acute osseous pathology, soft tissue swelling or joint dislocations are seen. IMPRESSION: No evidence of acute fracture or dislocation.
--- NOTE | 2022-12-22 20:34 | ED ---
Upper Extremity HPI - General Chief Complaint: Extremity Injury, Upper Stated Complaint: Overextened right elbow Time Seen by Provider: 12/22/22 19:48 Source: patient Mode of arrival: ambulatory Limitations: no limitations - History of Present Illness Initial Comments: Patient is a 47-year-old male who presents to the emergency department for right elbow pain. Patient was lifting something out of his vehicle when he over extended his elbow. Patient has mild pain in the inside of his elbow. Denies any issues with range of motion. No numbness or tingling. - Related Data Home Medications Medication Instructions Recorded Confirmed Albuterol Inhaler [Ventolin Hfa 2 puff INHALATION RT-Q6H PRN 12/22/19 12/22/19 Inhaler] Atorvastatin [Lipitor] 20 mg PO DAILY@0700 12/22/19 12/22/19 Budesonide/Formoterol Fumarate 1 puff INHALATION RT-BID 12/22/19 12/22/19 [Symbicort 160-4.5 Mcg Inhaler] Omeprazole 20 mg PO DAILY@0700 12/22/19 12/22/19 amLODIPine [Norvasc] 5 mg PO DAILY@0700 12/22/19 12/22/19 busPIRone HCL [Buspar] 7.5 mg PO DAILY@0700 12/22/19 12/22/19 busPIRone HCL [Buspar] 7.5 mg PO HS PRN 12/22/19 12/22/19 carvediloL [Coreg] 6.25 mg PO BID@0700,1800 12/22/19 12/22/19 Previous Rx's Medication Instructions Recorded Melatonin 3 mg PO HS #30 tablet 12/23/19 Ibuprofen [Motrin] 800 mg PO Q8HR PRN #30 tab 12/22/22 Ibuprofen [Motrin] 800 mg PO Q8HR PRN #30 tab 12/22/22 Allergies Allergy/AdvReac Type Severity Reaction Status Date / Time Penicillins AdvReac Unknown WEAKNESS Verified 12/22/22 19:45 Review of Systems ROS Statement: Those systems with pertinent positive or pertinent negative responses have been documented in the HPI. ROS Other: All systems not noted in ROS Statement are negative. Past Medical History Past Medical History: Asthma, COPD, Hypertension History of Any Multi-Drug Resistant Organisms: None Reported Past Surgical History: No Surgical Hx Reported Past Psychological History: No Psychological Hx Reported Smoking Status: Never smoker Past Alcohol Use History: None Reported Past Drug Use History: None Reported General Exam Limitations: no limitations General appearance: alert, in no apparent distress Eye exam: Present: normal appearance, PERRL, EOMI. Absent: scleral icterus, conjunctival injection, periorbital swelling Respiratory exam: Present: normal lung sounds bilaterally. Absent: respiratory distress, wheezes, rales, rhonchi, stridor Cardiovascular Exam: Present: regular rate, normal rhythm, normal heart sounds. Absent: systolic murmur, diastolic murmur, rubs, gallop, clicks Right Upper Arm exam: Present: normal inspection, full ROM. Absent: tenderness, swelling Elbow exam: Present: normal inspection, full ROM. Absent: tenderness, swelling Course Vital Signs 12/22/22 12/22/22 19:43 20:56 Temperature 98.1 F Pulse Rate 79 72 Respiratory 20 16 Rate Blood Pressure 133/85 128/78 O2 Sat by Pulse 96 99 Oximetry Medical Decision Making - Medical Decision Making Was pt. sent in by a medical professional or institution (, PA, DIABETES TRAINER, urgent care, hospital, or custodial...) When possible be specific @ -No Did you speak to anyone other than the patient for history (EMS, parent, family, police, friend...)? What history was obtained from this source @ -No Did you review nursing and triage notes (agree or disagree)? Why? @ -I reviewed and agree with nursing and triage notes Were old charts reviewed (outside hosp., previous admission, EMS record, old EKG, old radiological studies, urgent care reports/EKG's, custodial records)? Report findings @ -No old charts were reviewed Differential Diagnosis (chest pain, altered mental status, abdominal pain women, abdominal pain men, vaginal bleeding, weakness, fever, dyspnea, syncope, headache, dizziness, GI bleed, back pain, seizure, CVA, palpatations, mental health)? @ -[Elbow fracture, elbow sprain, tendinitis, tendon rupture. This is not meant to be all-inclusive EKG interpreted by me (3pts min.). @ -As above X-rays interpreted by me (1pt min.). @ -None done yes, right elbow x-ray negative for acute process CT interpreted by me (1pt min.). @ -None done U/S interpreted by me (1pt. min.). @ -None done What testing was considered but not performed or refused? (CT, X-rays, U/S, labs)? Why? @ -None What meds were considered but not given or refused? Why? @Considered given Motrin or Toradol however patient declined Did you discuss the management of the patient with other professionals (codi sumner i.e. , PA, DIABETES TRAINER, lab, RT, psych nurse, social service director, [employer] certified concierge, teacher, precinct commanding officer, case maker)? Give summary @ -No Was smoking cessation discussed for >3mins.? @ -No Was critical care preformed (if so, how long)? @ -No Were there social determinants of health that impacted care today? How? (Homelessness, low income, unemployed, alcoholism, drug addiction, transportation, low edu. Level, literacy, decrease access to med. care, assisted, rehab)? @ -No Was there de-escalation of care discussed even if they declined (Discuss DNR or withdrawal of care, Hospice)? DNR status @ -No What co-morbidities impacted this encounter? (DM, HTN, Smoking, COPD, CAD, Cancer, CVA, ARF, Chemo, Hep., AIDS, mental health diagnosis, sleep apnea, morbid obesity)? @ -None Was patient admitted / discharged? Hospital course, mention meds given and route, prescriptions, significant lab abnormalities, going to OR and other pertinent info. @ -Discharged. Patient likely has mild elbow sprain we discussed symptomatic management in detail. Undiagnosed new problem with uncertain prognosis? @ -No Drug Therapy requiring intensive monitoring for toxicity (Heparin, Nitro, Insulin, Cardizem)? @ -No Were any procedures done? @ -No Diagnosis/symptom? @ -Right elbow sprain Acute, or Chronic, or Acute on Chronic? @ -Acute Uncomplicated (without systemic symptoms) or Complicated (systemic symptoms)? @ -Uncomplicated Side effects of treatment? @ -No Exacerbation, Progression, or Severe Exacerbation? @ -No Poses a threat to life or bodily function? How? (Chest pain, [place], PR, pneumonia, PE, COPD, DKA, ARF, appy, cholecystitis, CVA, Diverticulitis, Homicidal, Suicidal, threat to staff... and all critical care pts) @ -No Dr. Bahena is my attending Disposition Clinical Impression: Sprain of elbow, right Disposition: HOME SELF-CARE Instructions (If sedation given, give patient instructions): Elbow Sprain (ED) Additional Instructions: Rest and elevate the joint as much as possible. Ice the injury for the next 24- 48 hours. If symptoms continue after, apply warm compress. Take Tylenol or Motrin as needed for pain. Follow-up with primary care provider in 1 to 2 days. Return to the emergency department if you experience new, concerning, or worsening symptoms. Prescriptions: Ibuprofen [Motrin] 800 mg PO Q8HR PRN #30 tab PRN Reason: Pain Ibuprofen [Motrin] 800 mg PO Q8HR PRN #30 tab PRN Reason: Pain Is patient prescribed a controlled substance at d/c from ED?: No Referrals: Jeffrey Bryant DO [Primary Care Provider] - 1-2 days
[2022-12-22 21:04] VITALS: BP 128/78; PULSE 72; RESP 16
== END 2022-12-22 20:56 | disposition home or self-care (01) ==
LOC: EC 19:41
DX: S53.401A Unspecified sprain of right elbow, initial encounter (principal); J44.9 Chronic obstructive pulmonary disease, unspecified; I10 Essential (primary) hypertension; Z79.51 Long term (current) use of inhaled steroids; Z79.899 Other long term (current) drug therapy; Z88.0 Allergy status to penicillin; X50.0XXA Overexertion from strenuous movement or load, initial encounter
CPT/HCPCS: 99283

== ENCOUNTER 2023-05-19 01:26 | Emergency (ER) | payer BC, OTHER ==
[2023-05-19 01:41] VITALS: RESP 18; TEMP 97.7
[2023-05-19] MEDS ORDERED: ASPIRIN 81 MG PO STA (04:35)
[2023-05-19] MEDS ORDERED: LORazepam 1 MG TAB PO STA (04:35)
--- NOTE | 2023-05-19 04:36 | ED ---
General Adult HPI - General Chief complaint: Anxiety Stated complaint: Anxiety, Shortness of Breath Time Seen by Provider: 05/19/23 04:06 Source: patient Mode of arrival: ambulatory Limitations: no limitations - History of Present Illness Initial comments: Adithya is a 7-year-old male presented to the emergency department via ambulance for evaluation of anxiety. Patient reports he just feels like he cannot get his thoughts to slow down. Patient states he hasn't been able to sleep because of the anxiety. He also describes feeling a tightness in his chest and feeling like he can't take a deep breath. This is been present since he woke up in the morning. Since associated with anxiety. I kept him from falling asleep tonight which is what prompted him to the ER for further evaluation. - Related Data Home Medications Medication Instructions Recorded Confirmed Albuterol Inhaler [Ventolin Hfa 2 puff INHALATION RT-Q6H PRN 12/22/19 12/22/19 Inhaler] Atorvastatin [Lipitor] 20 mg PO DAILY@0700 12/22/19 12/22/19 Budesonide/Formoterol Fumarate 1 puff INHALATION RT-BID 12/22/19 12/22/19 [Symbicort 160-4.5 Mcg Inhaler] Omeprazole 20 mg PO DAILY@0700 12/22/19 12/22/19 amLODIPine [Norvasc] 5 mg PO DAILY@0700 12/22/19 12/22/19 busPIRone HCL [Buspar] 7.5 mg PO DAILY@0700 12/22/19 12/22/19 busPIRone HCL [Buspar] 7.5 mg PO HS PRN 12/22/19 12/22/19 carvediloL [Coreg] 6.25 mg PO BID@0700,1800 12/22/19 12/22/19 Previous Rx's Medication Instructions Recorded Melatonin 3 mg PO HS #30 tablet 12/23/19 Ibuprofen [Motrin] 800 mg PO Q8HR PRN #30 tab 12/22/22 Ibuprofen [Motrin] 800 mg PO Q8HR PRN #30 tab 12/22/22 Allergies Allergy/AdvReac Type Severity Reaction Status Date / Time Penicillins AdvReac Unknown WEAKNESS Verified 05/19/23 01:33 Review of Systems ROS Statement: Those systems with pertinent positive or pertinent negative responses have been documented in the HPI. ROS Other: All systems not noted in ROS Statement are negative. Past Medical History Past Medical History: Asthma, COPD, Hypertension History of Any Multi-Drug Resistant Organisms: None Reported Past Surgical History: No Surgical Hx Reported Past Psychological History: No Psychological Hx Reported Smoking Status: Never smoker Past Alcohol Use History: None Reported Past Drug Use History: Marijuana General Exam - General Exam Comments Initial Comments: Physical Exam GENERAL: Patient is well-developed and well-nourished. Patient is nontoxic and well- hydrated and is in no distress. HENT: Normocephalic, Atraumatic. EYES: PERRL, EOMI PULMONARY: Unlabored respirations. No audible rales rhonchi or wheezing was noted. CARDIOVASCULAR: There is a regular rate and rhythm without any murmurs gallops or rubs. ABDOMEN: Soft and nontender with normal bowel sounds. SKIN: Skin is clear with no lesions or rashes and otherwise unremarkable. : Deferred NEUROLOGIC: Patient is alert and oriented x3. Moving all extremities spontaneously MUSCULOSKELETAL: Normal extremities with adequate strength and full range of motion. No lower extremity swelling or edema. No calf tenderness. PSYCHIATRIC: Anxious Limitations: no limitations Course Vital Signs 05/19/23 05/19/23 01:33 06:21 Temperature 97.7 F Pulse Rate 73 7 L Respiratory 18 18 Rate Blood Pressure 141/87 143/85 O2 Sat by Pulse 92 L 96 Oximetry EKG Findings - EKG Comments: EKG Findings:: EKG obtained due to complaint of chest pressure, EKG obtained at 5:07 AM, rate is 63 rhythm is sinus normal axis normal intervals, NM 196 QRS 96 QTc [address] elevations or depressions there is no evidence of acute ischemia or infarction. Medical Decision Making - Medical Decision Making Was pt. sent in by a medical professional or institution (, PA, CORRECTIVE THERAPY AIDE, urgent care, hospital, or snf...) When possible be specific @ -No Did you speak to anyone other than the patient for history (EMS, parent, family, police, friend...)? What history was obtained from this source @ -No Did you review nursing and triage notes (agree or disagree)? Why? @ -I reviewed and agree with nursing and triage notes Were old charts reviewed (outside hosp., previous admission, EMS record, old EKG, old radiological studies, urgent care reports/EKG's, snf records)? Report findings @ -No old charts were reviewed Differential Diagnosis (chest pain, altered mental status, abdominal pain women, abdominal pain men, vaginal bleeding, weakness, fever, dyspnea, syncope, headache, dizziness, GI bleed, back pain, seizure, CVA, palpatations, mental health, musculoskeletal)? @ -Differential Chest Pain: Stable Angina, Unstable Angina, STEMI, NSTEMI Aortic Dissection, Pneumothorax, Musculoskeletal, Esophageal Spasm GERD, Cholecystitis, Pancreatitis, Zoster, this is not meant to be an all-inclusive list. EKG interpreted by me (3pts min.). @ -As above X-rays interpreted by me (1pt min.). @ Chest x-ray interpreted by me, no acute process CT interpreted by me (1pt min.). @ -None done U/S interpreted by me (1pt. min.). @ -None done What testing was considered but not performed or refused? (CT, X-rays, U/S, labs)? Why? @ -None What meds were considered but not given or refused? Why? @ -None Did you discuss the management of the patient with other professionals (professionals i.e. , PA, CORRECTIVE THERAPY AIDE, lab, RT, psych nurse, outreach and education social worker, wholesale manager, teacher, staff air tactical officer, major case detective)? Give summary @ -No Was smoking cessation discussed for >3mins.? @ -No Was critical care preformed (if so, how long)? @ -No Were there social determinants of health that impacted care today? How? (Homelessness, low income, unemployed, alcoholism, drug addiction, transportation, low edu. Level, literacy, decrease access to med. care, shelter, rehab)? @ -No Was there de-escalation of care discussed even if they declined (Discuss DNR or withdrawal of care, Hospice)? DNR status @ -No What co-morbidities impacted this encounter? (DM, HTN, Smoking, COPD, CAD, Cancer, CVA, ARF, Chemo, Hep., AIDS, mental health diagnosis, sleep apnea, morbid obesity)? @ -Smoking, mental health diagnosis Was patient admitted / discharged? Hospital course, mention meds given and route, prescriptions, significant lab abnormalities, going to OR and other pertinent info. @ -Discharge Patient was seen and evaluated, history was obtained from the patient, patient reports feeling very nervous and a she saw dates given him a feeling of tightness in his chest. Patient has no diaphoresis shortness of breath lightheadedness no significant cardiac history. Patient was treated with aspirin and by mouth Ativan Labs are obtained troponin is undetectable and d-dimer is 0.2. Considering that the symptoms have been present for nearly 24 hours and troponin is undetectable I do feel that a single troponin and normal EKG is adequate to rule out acute coronary syndrome Patient was advised of negative workup. Patient feeling better after oral Ativan. Patient stable for discharge home Undiagnosed new problem with uncertain prognosis? @ -No Drug Therapy requiring intensive monitoring for toxicity (Heparin, Nitro, Insulin, Cardizem)? @ -No Were any procedures done? @ -No Diagnosis/symptom? @ -Atypical chest pain Acute, or Chronic, or Acute on Chronic? @ -default Uncomplicated (without systemic symptoms) or Complicated (systemic symptoms)? @ -default Side effects of treatment? @ -No Exacerbation, Progression, or Severe Exacerbation? @ -No Poses a threat to life or bodily function? How? (Chest pain, [place], [place], pneumonia, PE, COPD, DKA, ARF, appy, cholecystitis, CVA, Diverticulitis, Homicidal, Suicidal, threat to staff... and all critical care pts) @ -No - Lab Data Result diagrams: 05/19/23 04:40 05/19/23 04:40 Lab Results 05/19/23 05/19/23 05/19/23 Range/Units 04:40 04:40 04:40 WBC 10.9 H (3.8-10.6) k/uL RBC 4.99 (4.30-5.90) m/uL Hgb 15.8 (13.0-17.5) gm/dL Hct 46.2 (39.0-53.0) % MCV 92.6 (80.0-100.0) fL MCH 31.6 (25.0-35.0) pg MCHC 34.1 (31.0-37.0) g/dL RDW 12.5 (11.5-15.5) % Plt Count 321 (150-450) k/uL MPV 8.4 Neutrophils % 70 % Lymphocytes % 20 % Monocytes % 6 % Eosinophils % 3 % Basophils % 0 % Neutrophils # 7.7 (1.3-7.7) k/uL Lymphocytes # 2.1 (1.0-4.8) k/uL Monocytes # 0.7 (0-1.0) k/uL Eosinophils # 0.3 (0-0.7) k/uL Basophils # 0.0 (0-0.2) k/uL D-Dimer (<0.60) mg/L FEU Sodium 140 (137-145) mmol/L Potassium 5.4 H (3.5-5.1) mmol/L Chloride 106 (98-107) mmol/L Carbon Dioxide 20 L (22-30) mmol/L Anion Gap 14 mmol/L BUN 11 (9-20) mg/dL Creatinine 0.76 (0.66-1.25) mg/dL Est GFR (CKD-EPI)AfAm >90 (>60 ml/min/1.73 sqM) Est GFR (CKD-EPI)NonAf >90 (>60 ml/min/1.73 sqM) Glucose 102 H (74-99) mg/dL Calcium 9.7 (8.4-10.2) mg/dL Magnesium 2.3 (1.6-2.3) mg/dL Total Bilirubin 1.1 (0.2-1.3) mg/dL AST 43 (17-59) U/L ALT 33 (4-49) U/L Alkaline Phosphatase 72 (38-126) U/L Troponin I <0.012 (0.000-0.034) ng/mL Total Protein 8.4 H (6.3-8.2) g/dL Albumin 4.8 (3.5-5.0) g/dL 05/19/23 Range/Units 04:40 WBC (3.8-10.6) k/uL RBC (4.30-5.90) m/uL Hgb (13.0-17.5) gm/dL Hct (39.0-53.0) % MCV (80.0-100.0) fL MCH (25.0-35.0) pg MCHC (31.0-37.0) g/dL RDW (11.5-15.5) % Plt Count (150-450) k/uL MPV Neutrophils % % Lymphocytes % % Monocytes % % Eosinophils % % Basophils % % Neutrophils # (1.3-7.7) k/uL Lymphocytes # (1.0-4.8) k/uL Monocytes # (0-1.0) k/uL Eosinophils # (0-0.7) k/uL Basophils # (0-0.2) k/uL D-Dimer 0.20 (<0.60) mg/L FEU Sodium (137-145) mmol/L Potassium (3.5-5.1) mmol/L Chloride (98-107) mmol/L Carbon Dioxide (22-30) mmol/L Anion Gap mmol/L BUN (9-20) mg/dL Creatinine (0.66-1.25) mg/dL Est GFR (CKD-EPI)AfAm (>60 ml/min/1.73 sqM) Est GFR (CKD-EPI)NonAf (>60 ml/min/1.73 sqM) Glucose (74-99) mg/dL Calcium (8.4-10.2) mg/dL Magnesium (1.6-2.3) mg/dL Total Bilirubin (0.2-1.3) mg/dL AST (17-59) U/L ALT (4-49) U/L Alkaline Phosphatase (38-126) U/L Troponin I (0.000-0.034) ng/mL Total Protein (6.3-8.2) g/dL Albumin (3.5-5.0) g/dL Disposition Clinical Impression: Atypical chest pain, Acute anxiety Disposition: HOME SELF-CARE Instructions (If sedation given, give patient instructions): Generalized Anxiety Disorder (ED) Is patient prescribed a controlled substance at d/c from ED?: No Referrals: Jeffrey Bryant DO [Primary Care Provider] - 1-2 days
[2023-05-19 05:20] LABS: Basophils % (A) 0 %; Eosinophils # (A) 0.3 k/uL (0-0.7); Eosinophils % (A) 3 %; HCT 46.2 % (39.0-53.0); HGB 15.8 gm/dL (13.0-17.5); Lymphocytes # (A) 2.1 k/uL (1.0-4.8); Lymphocytes % (A) 20 %; MCH 31.6 pg (25.0-35.0); MCHC 34.1 g/dL (31.0-37.0); MCV 92.6 fL (80.0-100.0); Mean Platelet Volume 8.4; Monocytes # (A) 0.7 k/uL (0-1.0); Monocytes % (A) 6 %; Neutrophils # (A) 7.7 k/uL (1.3-7.7); Neutrophils % (A) 70 %; Platelet Count 321 k/uL (150-450); RBC 4.99 m/uL (4.30-5.90); RDW 12.5 % (11.5-15.5); WBC 10.9 k/uL (3.8-10.6)
[2023-05-19 05:26] LABS: ALT 33 U/L (4-49); AST 43 U/L (17-59); African American GFR (CKD) >90 (>60 ml/min/1.73 sqM); Albumin 4.8 g/dL (3.5-5.0); Alkaline Phosphatase 72 U/L (38-126); Anion Gap 14 mmol/L; Blood Urea Nitrogen 11 mg/dL (9-20); Calcium 9.7 mg/dL (8.4-10.2); Carbon Dioxide 20 mmol/L (22-30); Chloride 106 mmol/L (98-107); Glucose 102 mg/dL (74-99); Magnesium 2.3 mg/dL (1.6-2.3); Non-African American GFR(CKD) >90 (>60 ml/min/1.73 sqM); Sodium 140 mmol/L (137-145); Total Bilirubin 1.1 mg/dL (0.2-1.3); Total Protein 8.4 g/dL (6.3-8.2)
[2023-05-19 05:42] LABS: Potassium 5.4 mmol/L (3.5-5.1)
--- NOTE | 2023-05-19 06:00 | XR ---
EXAMINATION TYPE: XR chest 2V DATE OF EXAM: 05/19/2023 COMPARISON: Chest x-ray December 22, 2019 HISTORY: History of COPD and asthma with chest pain TECHNIQUE: Frontal and lateral views of the chest are obtained. FINDINGS: There is mild chronic parenchymal changes redemonstrated without suspicious new focal air space opacity, pleural effusion, or pneumothorax seen. The cardiac silhouette size is stable and wit hin normal limits. The osseous structures are intact. IMPRESSION: No acute process. No significant change from prior.
[2023-05-19 06:30] VITALS: BP 143/85; PULSE 7
== END 2023-05-19 06:22 | disposition home or self-care (01) ==
LOC: EC 01:26
DX: R07.89 Other chest pain (principal); F41.9 Anxiety disorder, unspecified; J44.9 Chronic obstructive pulmonary disease, unspecified; I10 Essential (primary) hypertension; F12.90 Cannabis use, unspecified, uncomplicated; Z79.899 Other long term (current) drug therapy; Z88.0 Allergy status to penicillin; Z79.51 Long term (current) use of inhaled steroids
CPT/HCPCS: 36415; 71046; 80053; 83735; 84484; 85025; 85379; 93005; 99283

== ENCOUNTER 2023-06-08 21:22 | Emergency (ER) | payer BC, OTHER ==
[2023-06-08 21:29] VITALS: RESP 18; TEMP 98.2
[2023-06-08] MEDS ORDERED: MORPHINE SULFATE 4 MG/ML SYRINGE IV STA (21:37)
[2023-06-08] MEDS ORDERED: SODIUM CHLORIDE 0.9% 500 ML 500 ML IV STA (21:37)
--- NOTE | 2023-06-08 21:38 | ED ---
Chest Pain HPI - General Chief Complaint: Chest Pain Stated Complaint: High BP Time Seen by Provider: 06/08/23 21:36 Source: patient Mode of arrival: ambulatory Limitations: no limitations - Related Data Home Medications Medication Instructions Recorded Confirmed Albuterol Inhaler [Ventolin Hfa 2 puff INHALATION RT-Q6H PRN 12/22/19 12/22/19 Inhaler] Atorvastatin [Lipitor] 20 mg PO DAILY@0700 12/22/19 12/22/19 Budesonide/Formoterol Fumarate 1 puff INHALATION RT-BID 12/22/19 12/22/19 [Symbicort 160-4.5 Mcg Inhaler] Omeprazole 20 mg PO DAILY@0700 12/22/19 12/22/19 amLODIPine [Norvasc] 5 mg PO DAILY@0700 12/22/19 12/22/19 busPIRone HCL [Buspar] 7.5 mg PO DAILY@0700 12/22/19 12/22/19 busPIRone HCL [Buspar] 7.5 mg PO HS PRN 12/22/19 12/22/19 carvediloL [Coreg] 6.25 mg PO BID@0700,1800 12/22/19 12/22/19 Previous Rx's Medication Instructions Recorded Melatonin 3 mg PO HS #30 tablet 12/23/19 Ibuprofen [Motrin] 800 mg PO Q8HR PRN #30 tab 12/22/22 Ibuprofen [Motrin] 800 mg PO Q8HR PRN #30 tab 12/22/22 Allergies Allergy/AdvReac Type Severity Reaction Status Date / Time Penicillins AdvReac Unknown WEAKNESS Verified 06/08/23 21:25 Review of Systems ROS Statement: Those systems with pertinent positive or pertinent negative responses have been documented in the HPI. ROS Other: All systems not noted in ROS Statement are negative. Past Medical History Past Medical History: Asthma, COPD, Hypertension History of Any Multi-Drug Resistant Organisms: None Reported Past Surgical History: No Surgical Hx Reported Past Psychological History: No Psychological Hx Reported Smoking Status: Never smoker Past Alcohol Use History: None Reported Past Drug Use History: Marijuana General Exam Limitations: no limitations Course Vital Signs 06/08/23 21:23 Temperature 98.2 F Pulse Rate 84 Respiratory 18 Rate Blood Pressure 154/98 O2 Sat by Pulse 95 Oximetry Disposition Referrals: Manny,Jeffrey, DO [Primary Care Provider] - 1-2 days
--- NOTE | 2023-06-08 21:57 | ED ---
Chest Pain HPI - General Chief Complaint: Chest Pain Stated Complaint: High BP Time Seen by Provider: 06/08/23 21:36 Source: patient Mode of arrival: ambulatory Limitations: no limitations - History of Present Illness Initial Comments: This patient is a 47-year-old man who presents to have evaluation after he developed a fluttering sensation in his chest. The patient states he was sitting at rest. He also felt some pressure on the chest. There was no exertional component. No associated symptoms. Patient rates the sensation as 0 out of 10. MD Complaint: other -: hour(s) Onset: during rest Pain Location: substernal Pain Radiation: none Severity scale (1-10): 0 Quality: heaviness Consistency: now resolved Improves With: nothing Worsens With: nothing Other Symptoms: palpitations Treatments Prior to Arrival: none - Related Data Home Medications Medication Instructions Recorded Confirmed Albuterol Inhaler [Ventolin Hfa 2 puff INHALATION RT-Q6H PRN 12/22/19 12/22/19 Inhaler] Atorvastatin [Lipitor] 20 mg PO DAILY@0700 12/22/19 12/22/19 Budesonide/Formoterol Fumarate 1 puff INHALATION RT-BID 12/22/19 12/22/19 [Symbicort 160-4.5 Mcg Inhaler] Omeprazole 20 mg PO DAILY@0700 12/22/19 12/22/19 amLODIPine [Norvasc] 5 mg PO DAILY@0700 12/22/19 12/22/19 busPIRone HCL [Buspar] 7.5 mg PO DAILY@0700 12/22/19 12/22/19 busPIRone HCL [Buspar] 7.5 mg PO HS PRN 12/22/19 12/22/19 carvediloL [Coreg] 6.25 mg PO BID@0700,1800 12/22/19 12/22/19 Previous Rx's Medication Instructions Recorded Melatonin 3 mg PO HS #30 tablet 12/23/19 Ibuprofen [Motrin] 800 mg PO Q8HR PRN #30 tab 12/22/22 Ibuprofen [Motrin] 800 mg PO Q8HR PRN #30 tab 12/22/22 Allergies Allergy/AdvReac Type Severity Reaction Status Date / Time Penicillins AdvReac Unknown WEAKNESS Verified 06/08/23 21:25 Review of Systems ROS Statement: Those systems with pertinent positive or pertinent negative responses have been documented in the HPI. ROS Other: All systems not noted in ROS Statement are negative. Constitutional: Denies: fever, chills Respiratory: Denies: cough, dyspnea Cardiovascular: Reports: as per HPI, palpitations. Denies: orthopnea, edema, syncope Gastrointestinal: Denies: abdominal pain, nausea, vomiting Genitourinary: Denies: dysuria, hematuria Musculoskeletal: Denies: back pain Skin: Denies: rash Neurological: Denies: headache, weakness EKG Findings - EKG Results: EKG: interpreted by TAMERA, sinus rhythm (Rate 80 bpm), normal axis, normal QRS, normal ST/T, no acute changes Past Medical History Past Medical History: Asthma, COPD, Hypertension History of Any Multi-Drug Resistant Organisms: None Reported Past Surgical History: No Surgical Hx Reported Past Psychological History: No Psychological Hx Reported Smoking Status: Never smoker Past Alcohol Use History: None Reported Past Drug Use History: Marijuana General Exam Limitations: no limitations General appearance: alert, in no apparent distress Head exam: Present: atraumatic, normocephalic Eye exam: Present: normal appearance. Absent: scleral icterus, conjunctival injection Neck exam: Present: normal inspection Respiratory exam: Present: normal lung sounds bilaterally. Absent: respiratory distress, wheezes, rales, rhonchi, stridor, chest wall tenderness, accessory muscle use Cardiovascular Exam: Present: regular rate, normal rhythm, normal heart sounds. Absent: systolic murmur, diastolic murmur, rubs, gallop GI/Abdominal exam: Present: soft. Absent: distended, tenderness, guarding, rebound, rigid, mass Extremities exam: Present: normal inspection, normal capillary refill. Absent: pedal edema, calf tenderness Back exam: Present: normal inspection. Absent: CVA tenderness (R), CVA tenderness (L) Neurological exam: Present: alert Skin exam: Present: warm, dry, intact, normal color. Absent: rash Course Vital Signs 06/08/23 06/08/23 06/08/23 21:23 21:43 22:59 Temperature 98.2 F Pulse Rate 84 72 71 Respiratory 18 18 18 Rate Blood Pressure 154/98 132/92 139/92 O2 Sat by Pulse 95 95 98 Oximetry 06/09/23 00:57 Temperature Pulse Rate 74 Respiratory 18 Rate Blood Pressure 132/80 O2 Sat by Pulse 100 Oximetry Chest Pain MDM - MDM The patient had chest x-ray which I interpreted as negative for acute infiltrate, pneumothorax, congestive heart failure. Was pt. sent in by a medical professional or institution (JUD Gamez, BUTTONHOLER, urgent care, hospital, or fci...) When possible be specific @ -[No] Did you speak to anyone other than the patient for history (EMS, parent, family, police, friend...)? What history was obtained from this source @ -[No] Did you review nursing and triage notes (agree or disagree)? Why? @ -[I reviewed and agree with nursing and triage notes] Were old charts reviewed (outside hosp., previous admission, EMS record, old EKG, old radiological studies, urgent care reports/EKG's, fci records)? Report findings @ -[No old charts were reviewed] Differential Diagnosis (chest pain, altered mental status, abdominal pain women, abdominal pain men, vaginal bleeding, weakness, fever, dyspnea, syncope, headache, dizziness, GI bleed, back pain, seizure, CVA, palpatations, mental health, musculoskeletal)? @ -[Differential Chest Pain: Stable Angina, Unstable Angina, STEMI, NSTEMI Aortic Dissection, Pneumothorax, Musculoskeletal, Esophageal Spasm GERD, Cholecystitis, Pancreatitis, Zoster, this is not meant to be an all-inclusive list. EKG interpreted by me (3pts min.). @ -[I interpreted As above] X-rays interpreted by me (1pt min.). @ -[I interpreted as above CT interpreted by me (1pt min.). @ -[None done] U/S interpreted by me (1pt. min.). @ -[None done] What testing was considered but not performed or refused? (CT, X-rays, U/S, labs)? Why? @ -[None] What meds were considered but not given or refused? Why? @ -[None] Did you discuss the management of the patient with other professionals (professionals i.e. JUD Gamez, BUTTONHOLER, lab, RT, psych nurse, social media community manager, mobile disc jockey, teacher, court officer, field case manager)? Give summary @ -[No] Was smoking cessation discussed for >3mins.? @ -[No] Was critical care preformed (if so, how long)? @ -[No] Were there social determinants of health that impacted care today? How? (Homelessness, low income, unemployed, alcoholism, drug addiction, transportation, low edu. Level, literacy, decrease access to med. care, custodial, rehab)? @ -[No] Was there de-escalation of care discussed even if they declined (Discuss DNR or withdrawal of care, Hospice)? DNR status @ -[No] What co-morbidities impacted this encounter? (DM, HTN, Smoking, COPD, CAD, Cancer, CVA, ARF, Chemo, Hep., AIDS, mental health diagnosis, sleep apnea, morbid obesity)? @ -[None] Was patient admitted / discharged? Hospital course, mention meds given and route, prescriptions, significant lab abnormalities, going to OR and other pertinent info. @ -[Patient is 47-year-old man presenting with palpitations and chest symptoms. His physical exam and initial workup are unremarkable. He is asymptomatic and would like to go home. We discussed appropriate further care and follow-up. We discussed return parameters. Undiagnosed new problem with uncertain prognosis? @ -[No] Drug Therapy requiring intensive monitoring for toxicity (Heparin, Nitro, Insulin, Cardizem)? @ -[No] Were any procedures done? @ -[No] Diagnosis/symptom? @ -[Acute chest pain Hypertension Acute, or Chronic, or Acute on Chronic? @ -[Acute Uncomplicated (without systemic symptoms) or Complicated (systemic symptoms)? @ -[Uncomplicated Side effects of treatment? @ -[No] Exacerbation, Progression, or Severe Exacerbation? @ -[No] Poses a threat to life or bodily function? How? (Chest pain, [place], [place], pneumonia, PE, COPD, DKA, ARF, appy, cholecystitis, CVA, Diverticulitis, Homicidal, Suicidal, threat to staff... and all critical care pts) @ -[No] Disposition Clinical Impression: Chest pain, Hypertension Disposition: HOME SELF-CARE Condition: Good Instructions (If sedation given, give patient instructions): Chest Pain (ED), Hypertension (ED) Is patient prescribed a controlled substance at d/c from ED?: No Referrals: Jeffrey Bryant DO [Primary Care Provider] - 1-2 days
[2023-06-08 22:38] LABS: ALT 42 U/L (4-49); AST 34 U/L (17-59); African American GFR (CKD) >90 (>60 ml/min/1.73 sqM); Albumin 4.4 g/dL (3.5-5.0); Alkaline Phosphatase 84 U/L (38-126); Anion Gap 11 mmol/L; Blood Urea Nitrogen 15 mg/dL (9-20); Calcium 9.9 mg/dL (8.4-10.2); Carbon Dioxide 22 mmol/L (22-30); Chloride 105 mmol/L (98-107); Glucose 127 mg/dL (74-99); Non-African American GFR(CKD) >90 (>60 ml/min/1.73 sqM); Potassium 4.1 mmol/L (3.5-5.1); Sodium 138 mmol/L (137-145); Total Bilirubin 0.6 mg/dL (0.2-1.3); Total Protein 7.5 g/dL (6.3-8.2)
[2023-06-08 22:42] LABS: Basophils % (A) 0 %; Eosinophils # (A) 0.4 k/uL (0-0.7); Eosinophils % (A) 4 %; HCT 45.3 % (39.0-53.0); HGB 15.3 gm/dL (13.0-17.5); Lymphocytes # (A) 2.7 k/uL (1.0-4.8); Lymphocytes % (A) 28 %; MCH 31.4 pg (25.0-35.0); MCHC 33.8 g/dL (31.0-37.0); MCV 92.9 fL (80.0-100.0); Mean Platelet Volume 8.7; Monocytes # (A) 0.7 k/uL (0-1.0); Monocytes % (A) 7 %; Neutrophils # (A) 5.9 k/uL (1.3-7.7); Neutrophils % (A) 59 %; Platelet Count 352 k/uL (150-450); RBC 4.87 m/uL (4.30-5.90); RDW 12.3 % (11.5-15.5); WBC 9.9 k/uL (3.8-10.6)
--- NOTE | 2023-06-09 00:04 | XR ---
EXAM: XR Chest, 2 Views CLINICAL HISTORY: ITS.REASON XR Reason: Chest Pain TECHNIQUE: Frontal and lateral views of the chest. COMPARISON: No relevant prior studies available. FINDINGS: Lungs: Unremarkable. No consolidation. Pleural space: Unremarkable. No pneumothorax. Heart: Unremarkable. No cardiomegaly. Mediastinum: Unremarkable. Bones/joints: Unremarkable. IMPRESSION: Normal chest x-rays.
[2023-06-09 01:14] VITALS: BP 132/80; PULSE 74
== END 2023-06-09 00:57 | disposition home or self-care (01) ==
LOC: EC 21:22
DX: R07.89 Other chest pain (principal); I10 Essential (primary) hypertension; J44.89 Other specified chronic obstructive pulmonary disease; F12.90 Cannabis use, unspecified, uncomplicated; Z79.51 Long term (current) use of inhaled steroids; Z79.899 Other long term (current) drug therapy; Z88.0 Allergy status to penicillin
CPT/HCPCS: 36415; 71046; 80053; 83735; 84484; 85025; 93005; 99285